=== PATIENT | female | born 1950 | race Two or more races ===

== ENCOUNTER → 2020-08-05 | Outpatient (REF) | payer OTHER, MEDICAID ==
[~2020-08-05] MED LIST: CELE20TA PO; FOLI1TAB11 PO; LIDO5DIS41 TD; MECL1TAB31 PO; MULT1TAB8 PO; NO HOME MEDS; PENI500T PO; SERAX PO; TYLE325T5 PO; VITAMIN B-1100 M4 PO
[2020-08-05 16:32] LABS: BASO % 0.5 % (0.0-1.0); EOS % 0.5 % (0.0-3.0); HEMATOCRIT 43.2 % (36.0-47.0); HEMOGLOBIN 13.9 g/dl (12.0-15.5); LYMPH # 1.4 10^3/uL (1.5-5.0); LYMPH % 23.5 % (24.0-44.0); MEAN CORPUSCULAR HEMOGLOBIN 30.5 pg (27.0-33.0); MEAN CORPUSCULAR HGB CONC 32.2 g/dl (32.0-36.5); MEAN CORPUSCULAR VOLUME 94.9 fl (80.0-96.0); MONO # 0.4 10^3/uL (0.0-0.8); MONO % 7.2 % (2.0-8.0); NEUTROPHILS # 4.1 10^3/uL (1.5-8.5); PLATELET COUNT, AUTOMATED 254 10^3/uL (150-450); RED BLOOD COUNT 4.55 10^6/uL (4.00-5.40)
[2020-08-05 17:01] LABS: ALBUMIN 3.9 GM/DL (3.2-5.2); ALT/SGPT 28 U/L (12-78); BILIRUBIN,TOTAL 0.3 MG/DL (0.2-1.0); BLOOD UREA NITROGEN 13 MG/DL (7-18); CALCIUM LEVEL 9.5 MG/DL (8.8-10.2); CARBON DIOXIDE LEVEL 28 MEQ/L (21-32); CHLORIDE LEVEL 105 MEQ/L (98-107); CREATININE FOR GFR 0.67 MG/DL (0.55-1.30); GLOMERULAR FILTRATION RATE > 60.0 (>45); GLUCOSE, FASTING 103 MG/DL (70-100); SODIUM LEVEL 139 MEQ/L (136-145); TOTAL PROTEIN 7.5 GM/DL (6.4-8.2)
== END ==
LOC: M SFHCCLAY 11:06
PROVIDERS: ATTEND Nurse Practitioner Family
DX: I26.99 Other pulmonary embolism without acute cor pulmonale (principal); J44.9 Chronic obstructive pulmonary disease, unspecified; R91.8 Other nonspecific abnormal finding of lung field

== ENCOUNTER → 2020-09-10 | Outpatient (CLI) | payer MEDICARE, MEDICAID | LOC: M PLARAD 12:22 | PROVIDERS: ATTEND Internal Medicine Pulmonary Disease | DX: R91.1 Solitary pulmonary nodule (principal) | CPT/HCPCS: 78815; A9552 ==

== ENCOUNTER → 2021-02-13 | Outpatient (CLI) | payer MEDICARE, MEDICAID ==
--- NOTE | 2021-02-13 15:31 | REP ---
INDICATION: SOLITARY PULMONARY NODULE COMPARISON: 07/02/2020 TECHNIQUE: Axial noncontrast images from the thoracic inlet to the upper abdomen with coronal and sagittal reformations. This CT examination was performed using the following dose reduction techniques: Automated exposure control, adjustment of mA and/or kv according to the patient's size, and use of iterative reconstruction technique. FINDINGS: The previously identified 10 mm spiculated nodule in the medial aspect of the right lower lobe has been replaced by small amount of scarring (series 201; image 53). The lung olmedo demonstrate advanced COPD/emphysematous changes with scattered scarring. No further acute consolidation, suspicious nodule or mass lesion. No effusion. No pneumothorax. Bronchiectasis noted. Nonspecific mediastinal lymph nodes measure up to 10 mm short axis diameter. Atherosclerotic changes to the thoracic aorta and coronary arteries remains stable. No cardiomegaly or pericardial effusion. Musculoskeletal structures demonstrate age-related degenerative changes. IMPRESSION: 1. The previously identified spiculated 10 mm nodule along the medial right lower lobe is no longer visible and should be correlated with the possibility of recent surgical intervention. 2. Lung olmedo demonstrate advanced emphysematous changes and scattered scarring without new acute process. <Electronically signed by De Azul > 02/13/21 0319
== END ==
LOC: M RAD 13:28
PROVIDERS: ATTEND Internal Medicine Pulmonary Disease
DX: R91.1 Solitary pulmonary nodule (principal)

== ENCOUNTER → 2021-05-26 | Outpatient (REF) | payer MEDICARE, MEDICAID ==
[2021-05-26 15:47] LABS: BASO % 0.7 % (0.0-1.0); EOS % 0.5 % (0.0-3.0); HEMATOCRIT 46.4 % (36.0-47.0); HEMOGLOBIN 15.4 g/dl (12.0-15.5); LYMPH # 1.7 10^3/uL (1.5-5.0); LYMPH % 28.3 % (24.0-44.0); MEAN CORPUSCULAR HEMOGLOBIN 31.4 pg (27.0-33.0); MEAN CORPUSCULAR HGB CONC 33.2 g/dl (32.0-36.5); MEAN CORPUSCULAR VOLUME 94.7 fl (80.0-96.0); MONO # 0.5 10^3/uL (0.0-0.8); MONO % 8.7 % (2.0-8.0); NEUTROPHILS # 3.7 10^3/uL (1.5-8.5); NEUTROPHILS % 61.3 % (36.0-66.0); PLATELET COUNT, AUTOMATED 256 10^3/uL (150-450)
[2021-05-26 16:23] LABS: ALBUMIN 4.2 GM/DL (3.2-5.2); ALT/SGPT 31 U/L (12-78); BILIRUBIN,TOTAL 0.6 MG/DL (0.2-1.0); BLOOD UREA NITROGEN 15 MG/DL (7-18); CALCIUM LEVEL 10.2 MG/DL (8.8-10.2); CARBON DIOXIDE LEVEL 32 MEQ/L (21-32); CHLORIDE LEVEL 102 MEQ/L (98-107); CREATININE FOR GFR 0.69 MG/DL (0.55-1.30); GLOMERULAR FILTRATION RATE > 60.0 (>45); GLUCOSE, FASTING 101 MG/DL (70-100); POTASSIUM SERUM 4.9 MEQ/L (3.5-5.1); SODIUM LEVEL 138 MEQ/L (136-145); TOTAL PROTEIN 7.8 GM/DL (6.4-8.2)
== END ==
LOC: M SFHCCLAY 13:26
PROVIDERS: ATTEND Nurse Practitioner Family
DX: I26.99 Other pulmonary embolism without acute cor pulmonale (principal); J44.9 Chronic obstructive pulmonary disease, unspecified; R91.8 Other nonspecific abnormal finding of lung field

== ENCOUNTER → 2022-05-28 | Outpatient (REF) | payer MEDICARE, MEDICAID ==
[2022-05-28 17:52] LABS: BASO % 0.7 % (0.0-1.0); EOS # 0.1 10^3/uL (0.0-0.5); EOS % 1.3 % (0.0-3.0); HEMATOCRIT 45.1 % (36.0-47.0); HEMOGLOBIN 14.5 g/dl (12.0-15.5); LYMPH # 1.5 10^3/uL (1.5-5.0); LYMPH % 24.2 % (24.0-44.0); MEAN CORPUSCULAR HEMOGLOBIN 31.3 pg (27.0-33.0); MEAN CORPUSCULAR HGB CONC 32.2 g/dl (32.0-36.5); MEAN CORPUSCULAR VOLUME 97.2 fl (80.0-96.0); MONO # 0.5 10^3/uL (0.0-0.8); NEUTROPHILS # 3.9 10^3/uL (1.5-8.5); NEUTROPHILS % 64.6 % (36.0-66.0); PLATELET COUNT, AUTOMATED 253 10^3/uL (150-450); RED BLOOD COUNT 4.64 10^6/uL (4.00-5.40)
[2022-05-28 18:13] LABS: THYROID STIMULATING HORMONE 2.062 uIU/ML (0.55-4.78)
[2022-05-28 18:14] LABS: ALBUMIN 4.2 G/DL (3.2-5.2); ALKALINE PHOSPHATASE 93 U/L (46-116); ALT/SGPT 16 U/L (7.0-40); AST/SGOT 21 U/L (<34); BILIRUBIN,TOTAL 0.4 MG/DL (0.3-1.2); BLOOD UREA NITROGEN 11 MG/DL (9-23); CALCIUM LEVEL 9.9 MG/DL (8.3-10.6); CARBON DIOXIDE LEVEL 31 MMOL/L (20-31); CHLORIDE LEVEL 103 MMOL/L (98-107); CHOLESTEROL LEVEL 229 MG/DL (<200); CHOLESTEROL RISK RATIO 2.01 (<5); CREATININE FOR GFR 0.58 MG/DL (0.55-1.30); FREE T4 1.31 NG/DL (0.89-1.76); GLOMERULAR FILTRATION RATE > 60.0 (>39); GLUCOSE, FASTING 84 MG/DL (74-106); HDL CHOLESTEROL 113.5 MG/DL (>40); LDL CHOLESTEROL 95.9 MG/DL (<100); NON-HDL-C 115.5 MG/DL; POTASSIUM SERUM 4.3 MMOL/L (3.5-5.1); SODIUM LEVEL 139 MMOL/L (136-145); TOTAL PROTEIN 7.2 G/DL (5.7-8.2); TRIGLYCERIDES LEVEL 98 MG/DL (<150)
== END ==
LOC: M SFHCCLAY 13:32
PROVIDERS: ATTEND Nurse Practitioner Family
DX: I26.99 Other pulmonary embolism without acute cor pulmonale (principal); J44.9 Chronic obstructive pulmonary disease, unspecified; R91.8 Other nonspecific abnormal finding of lung field; Z79.899 Other long term (current) drug therapy

== ENCOUNTER 2022-11-25 18:34 | Observation (INO) | payer MEDICARE, MEDICAID ==
[~2022-11-25] VITALS: Ht 157.5 cm; Wt 45.5 kg
[~2022-11-25 18:34] MED LIST changes: +MECL-209 PO; -MECL1TAB31 PO
[2022-11-25 19:55] LABS: BASO % 0.6 % (0.0-1.0); EOS # 0.1 10^3/uL (0.0-0.5); EOS % 0.9 % (0.0-3.0); HEMOGLOBIN 14.8 g/dl (12.0-15.5); LYMPH # 1.3 10^3/uL (1.5-5.0); MEAN CORPUSCULAR HEMOGLOBIN 31.6 pg (27.0-33.0); MEAN CORPUSCULAR HGB CONC 33.6 g/dl (32.0-36.5); MEAN CORPUSCULAR VOLUME 93.8 fl (80.0-96.0); MONO # 0.5 10^3/uL (0.0-0.8); NEUTROPHILS # 4.5 10^3/uL (1.5-8.5); NEUTROPHILS % 70.2 % (36.0-66.0); PLATELET COUNT, AUTOMATED 227 10^3/uL (150-450); RED BLOOD COUNT 4.69 10^6/uL (4.00-5.40); WHITE BLOOD COUNT 6.4 10^3/uL (4.0-10.0)
[2022-11-25 20:07] LABS: INR 1.26; PROTHROMBIN TIME 15.5 SECONDS (12.5-14.5)
[2022-11-25 20:08] LABS: PARTIAL THROMBOPLASTIN TIME 33.8 SECONDS (24.8-34.2)
[2022-11-25 20:13] LABS: LIPASE 54 U/L (12-53)
[2022-11-25 20:15] LABS: ALBUMIN 3.9 G/DL (3.2-5.2); ALKALINE PHOSPHATASE 96 U/L (46-116); ALT/SGPT 23 U/L (7.0-40); AST/SGOT 26 U/L (<34); BILIRUBIN,DIRECT < 0.1 MG/DL (<0.4); BILIRUBIN,TOTAL 0.3 MG/DL (0.3-1.2); BLOOD UREA NITROGEN 8 MG/DL (9-23); CALCIUM LEVEL 9.3 MG/DL (8.3-10.6); CARBON DIOXIDE LEVEL 29 MMOL/L (20-31); CHLORIDE LEVEL 101 MMOL/L (98-107); CREATININE FOR GFR 0.46 MG/DL (0.55-1.30); GLOMERULAR FILTRATION RATE > 60.0 (>39); GLUCOSE, FASTING 108 MG/DL (74-106); POTASSIUM SERUM 4.4 MMOL/L (3.5-5.1); SODIUM LEVEL 134 MMOL/L (136-145); TOTAL PROTEIN 7.3 G/DL (5.7-8.2)
[2022-11-25 20:19] LABS: CPK CREATINE PHOSPHOKINASE 151 U/L (34-145); MB/CK RELATIVE INDEX 1.98 (< OR =4)
[2022-11-25] MEDS ORDERED: ISOVUE-370 76% 100ML VIAL As Ordered ONE (21:19)
[2022-11-25 22:04] LABS: CK-MB VALUE MASS 2.1 NG/ML (<3.6)
[2022-11-25 22:08] LABS: MB/CK RELATIVE INDEX 1.52 (< OR =4)
[2022-11-25 23:06] LABS: RSV AMPLIFICATION NEGATIVE (NEGATIVE)
[2022-11-26] MEDS ORDERED: MOM 30ML SUSPENSION UDC PO PRN
[2022-11-26] MEDS ORDERED: hydrALAZINE 20MG/ML 1ML VIAL IV PRN (00:20)
[2022-11-26] MEDS ORDERED: LORazepam 2 MG TAB PO PRN (00:20)
[2022-11-26] MEDS ORDERED: ALBU8.5H INH (00:33)
[2022-11-26] MEDS ORDERED: HAIR1CHW PO (00:33)
[2022-11-26] MEDS ORDERED: XARE20TA PO (00:33)
[2022-11-26] MEDS ORDERED: MULTCHW12 PO (00:33)
[2022-11-26] MEDS ORDERED: HOME MED LIST COMPLETE! XX SCH (00:35)
[2022-11-26] MEDS ORDERED: ALBUTEROL 90 MCG/ACT 8GM HFA INHALER INH PRN (00:40)
[2022-11-26] MEDS: ATORVASTATIN 20 MG TAB PO SCH ×2 (01:36→21:12)
[2022-11-26] MEDS: THIAMINE 100 MG TAB PO SCH ×3 (01:36→21:12)
[2022-11-26 06:32] LABS: HEMATOCRIT 41.3 % (36.0-47.0); MEAN CORPUSCULAR HEMOGLOBIN 31.5 pg (27.0-33.0); MEAN CORPUSCULAR HGB CONC 33.9 g/dl (32.0-36.5); MEAN CORPUSCULAR VOLUME 92.8 fl (80.0-96.0); PLATELET COUNT, AUTOMATED 214 10^3/uL (150-450); RED BLOOD COUNT 4.45 10^6/uL (4.00-5.40); WHITE BLOOD COUNT 5.9 10^3/uL (4.0-10.0)
[2022-11-26 07:30] LABS: ALBUMIN 3.5 G/DL (3.2-5.2); ALKALINE PHOSPHATASE 86 U/L (46-116); ALT/SGPT 18 U/L (7.0-40); AST/SGOT 23 U/L (<34); BILIRUBIN,TOTAL 0.5 MG/DL (0.3-1.2); BLOOD UREA NITROGEN 7 MG/DL (9-23); CALCIUM LEVEL 9.5 MG/DL (8.3-10.6); CARBON DIOXIDE LEVEL 33 MMOL/L (20-31); CHLORIDE LEVEL 106 MMOL/L (98-107); CREATININE FOR GFR 0.56 MG/DL (0.55-1.30); GLOMERULAR FILTRATION RATE > 60.0 (>39); GLUCOSE, FASTING 93 MG/DL (74-106); SODIUM LEVEL 141 MMOL/L (136-145); TOTAL PROTEIN 6.5 G/DL (5.7-8.2)
[2022-11-26 10:04] LABS: CHOLESTEROL LEVEL 207 MG/DL (<200); CHOLESTEROL RISK RATIO 1.86 (<5); HDL CHOLESTEROL 110.9 MG/DL (>40); LDL CHOLESTEROL 78.1 MG/DL (<100); NON-HDL-C 96.1 MG/DL; TRIGLYCERIDES LEVEL 90 MG/DL (<150)
[2022-11-26] MEDS: ASPIRIN 81MG CHEW TABLET PO SCH (10:24)
[2022-11-26] MEDS: FOLIC ACID 1MG TAB PO SCH (10:24)
[2022-11-26] MEDS: MULTIVITAMINS/MINERALS THERAP 1 TAB PO SCH (10:24)
[2022-11-26] MEDS: DOCUSATE SODIUM 100MG CAPSULE PO SCH ×2 (10:25→21:12)
[2022-11-26 10:34] LABS: HEMOGLOBIN A1c 5.1 % (4.0-6.0)
[2022-11-26] MEDS: RIVAROXABAN 20MG TAB (XARELTO) PO SCH (17:54)
[2022-11-26 18:19] LABS: FOLATE > 24.00 NG/ML (>5.4); VITAMIN B12 LEVEL 433 PG/ML (211-911)
[2022-11-27] MEDS: MULTIVITAMINS/MINERALS THERAP 1 TAB PO SCH (08:25)
[2022-11-27] MEDS: THIAMINE 100 MG TAB PO SCH ×2 (08:25→20:55)
[2022-11-27] MEDS: DOCUSATE SODIUM 100MG CAPSULE PO SCH ×2 (08:25→20:55)
[2022-11-27] MEDS: ASPIRIN 81MG CHEW TABLET PO SCH (08:25)
[2022-11-27] MEDS: FOLIC ACID 1MG TAB PO SCH (08:25)
[2022-11-27 09:16] LABS: BASO % 0.4 % (0.0-1.0); EOS # 0.1 10^3/uL (0.0-0.5); EOS % 0.9 % (0.0-3.0); HEMATOCRIT 42.6 % (36.0-47.0); HEMOGLOBIN 14.4 g/dl (12.0-15.5); LYMPH % 26.4 % (24.0-44.0); MEAN CORPUSCULAR HEMOGLOBIN 31.5 pg (27.0-33.0); MEAN CORPUSCULAR HGB CONC 33.8 g/dl (32.0-36.5); MEAN CORPUSCULAR VOLUME 93.2 fl (80.0-96.0); MONO # 0.7 10^3/uL (0.0-0.8); MONO % 8.7 % (2.0-8.0); NEUTROPHILS # 4.7 10^3/uL (1.5-8.5); NEUTROPHILS % 63.3 % (36.0-66.0); PLATELET COUNT, AUTOMATED 219 10^3/uL (150-450); RED BLOOD COUNT 4.57 10^6/uL (4.00-5.40); WHITE BLOOD COUNT 7.5 10^3/uL (4.0-10.0)
[2022-11-27 09:40] LABS: BLOOD UREA NITROGEN 14 MG/DL (9-23); CALCIUM LEVEL 9.4 MG/DL (8.3-10.6); CARBON DIOXIDE LEVEL 31 MMOL/L (20-31); CHLORIDE LEVEL 107 MMOL/L (98-107); CREATININE FOR GFR 0.59 MG/DL (0.55-1.30); GLOMERULAR FILTRATION RATE > 60.0 (>39); GLUCOSE, FASTING 92 MG/DL (74-106); SODIUM LEVEL 142 MMOL/L (136-145)
[2022-11-27] MEDS: IPRATROPIUM 0.5MG/ALBUTEROL 2.5MG INH SOL UD 3ML (DUONEB) NEB SCH ×3 (10:45→19:53)
[2022-11-27] MEDS: predniSONE 20 MG TAB PO SCH (11:03)
[2022-11-27] MEDS: SYMBICORT 80/4.5MCG INHALER 6GM INH SCH ×2 (11:31→19:54)
[2022-11-27] MEDS ORDERED: LORazepam 2 MG/ML 1ML VIAL IV STA (14:14)
[2022-11-27 17:00] VITALS: BP 111/71; TEMP 97.7; O2SAT 95
[2022-11-27] MEDS: RIVAROXABAN 20MG TAB (XARELTO) PO SCH (18:29)
[2022-11-27 20:24] VITALS: BP 104/57; TEMP 98.1; O2SAT 90
[2022-11-27] MEDS: ATORVASTATIN 20 MG TAB PO SCH (20:55)
[2022-11-28] VITALS (9 sets, daily range): BP systolic 102–110; BP diastolic 48–68; TEMP 97.3–97.7; O2SAT 82–94
[2022-11-28] MEDS: IPRATROPIUM 0.5MG/ALBUTEROL 2.5MG INH SOL UD 3ML (DUONEB) NEB SCH ×4 (01:30→20:00)
[2022-11-28] MEDS: SYMBICORT 80/4.5MCG INHALER 6GM INH SCH ×2 (07:10→20:00)
[2022-11-28] MEDS: THIAMINE 100 MG TAB PO SCH ×2 (08:33→20:23)
[2022-11-28] MEDS: FOLIC ACID 1MG TAB PO SCH (08:33)
[2022-11-28] MEDS: predniSONE 20 MG TAB PO SCH (08:33)
[2022-11-28] MEDS: MULTIVITAMINS/MINERALS THERAP 1 TAB PO SCH (08:33)
[2022-11-28] MEDS: ASPIRIN 81MG CHEW TABLET PO SCH (08:34)
[2022-11-28] MEDS: DOCUSATE SODIUM 100MG CAPSULE PO SCH ×3 (08:40→20:26)
[2022-11-28] MEDS: PANTOPRAZOLE 40MG TAB (PROTONIX) PO SCH (15:36)
[2022-11-28] MEDS: RIVAROXABAN 20MG TAB (XARELTO) PO SCH (17:41)
[2022-11-28] MEDS: ATORVASTATIN 20 MG TAB PO SCH (20:23)
[2022-11-29] MEDS: IPRATROPIUM 0.5MG/ALBUTEROL 2.5MG INH SOL UD 3ML (DUONEB) NEB SCH ×4 (02:00→19:21)
[2022-11-29 04:48] VITALS: BP 118/63; TEMP 97.7; O2SAT 100
[2022-11-29 06:56] VITALS: BP 118/63
[2022-11-29] MEDS: SYMBICORT 80/4.5MCG INHALER 6GM INH SCH ×2 (07:35→19:20)
[2022-11-29] MEDS: DOCUSATE SODIUM 100MG CAPSULE PO SCH ×3 (09:00→20:31)
[2022-11-29] MEDS: predniSONE 20 MG TAB PO SCH (09:07)
[2022-11-29] MEDS: FOLIC ACID 1MG TAB PO SCH (09:07)
[2022-11-29] MEDS: MULTIVITAMINS/MINERALS THERAP 1 TAB PO SCH (09:07)
[2022-11-29] MEDS: PANTOPRAZOLE 40MG TAB (PROTONIX) PO SCH (09:07)
[2022-11-29] MEDS: THIAMINE 100 MG TAB PO SCH (09:07)
[2022-11-29] MEDS: ASPIRIN 81MG CHEW TABLET PO SCH (09:07)
[2022-11-29] MEDS: RIVAROXABAN 20MG TAB (XARELTO) PO SCH (17:50)
[2022-11-29] MEDS: ATORVASTATIN 20 MG TAB PO SCH (20:40)
[2022-11-30] MEDS: IPRATROPIUM 0.5MG/ALBUTEROL 2.5MG INH SOL UD 3ML (DUONEB) NEB SCH ×4 (01:23→19:23)
[2022-11-30 05:31] VITALS: BP 119/63; TEMP 97.7; O2SAT 99
[2022-11-30] MEDS: SYMBICORT 80/4.5MCG INHALER 6GM INH SCH ×2 (07:19→19:23)
[2022-11-30] MEDS: DOCUSATE SODIUM 100MG CAPSULE PO SCH ×4 (09:00→20:55)
[2022-11-30] MEDS: FOLIC ACID 1MG TAB PO SCH (10:16)
[2022-11-30] MEDS: MULTIVITAMINS/MINERALS THERAP 1 TAB PO SCH (10:16)
[2022-11-30] MEDS: ASPIRIN 81MG CHEW TABLET PO SCH (10:16)
[2022-11-30] MEDS: PANTOPRAZOLE 40MG TAB (PROTONIX) PO SCH (10:16)
[2022-11-30] MEDS: predniSONE 20 MG TAB PO SCH (10:16)
[2022-11-30 10:19] VITALS: BP 112/58
[2022-11-30] MEDS: RIVAROXABAN 20MG TAB (XARELTO) PO SCH (18:01)
[2022-11-30 20:58] VITALS: O2SAT 87
[2022-11-30 21:00] VITALS: O2SAT 88
[2022-11-30] MEDS: ATORVASTATIN 20 MG TAB PO SCH (21:04)
[2022-12-01] VITALS (13 sets, daily range): BP systolic 146; BP diastolic 76; TEMP 97.7; O2SAT 84–94
[2022-12-01] MEDS: IPRATROPIUM 0.5MG/ALBUTEROL 2.5MG INH SOL UD 3ML (DUONEB) NEB SCH ×2 (02:00→08:00)
[2022-12-01] MEDS: SYMBICORT 80/4.5MCG INHALER 6GM INH SCH ×2 (08:00→19:30)
[2022-12-01] MEDS: DOCUSATE SODIUM 100MG CAPSULE PO SCH ×2 (09:00→20:20)
[2022-12-01] MEDS: MULTIVITAMINS/MINERALS THERAP 1 TAB PO SCH (09:28)
[2022-12-01] MEDS: ASPIRIN 81MG CHEW TABLET PO SCH (09:28)
[2022-12-01] MEDS: PANTOPRAZOLE 40MG TAB (PROTONIX) PO SCH (09:28)
[2022-12-01] MEDS: predniSONE 20 MG TAB PO SCH (09:28)
[2022-12-01] MEDS: FOLIC ACID 1MG TAB PO SCH (09:28)
[2022-12-01] MEDS: RIVAROXABAN 20MG TAB (XARELTO) PO SCH (18:13)
[2022-12-01] MEDS: ATORVASTATIN 20 MG TAB PO SCH (20:20)
[2022-12-02 04:40] VITALS: BP 154/94; TEMP 97.7; O2SAT 94
[2022-12-02] MEDS: SYMBICORT 80/4.5MCG INHALER 6GM INH SCH ×2 (07:25→20:06)
[2022-12-02] MEDS: DOCUSATE SODIUM 100MG CAPSULE PO SCH ×3 (09:00→19:45)
[2022-12-02] MEDS: ASPIRIN 81MG CHEW TABLET PO SCH (09:17)
[2022-12-02] MEDS: FOLIC ACID 1MG TAB PO SCH (09:18)
[2022-12-02] MEDS: MULTIVITAMINS/MINERALS THERAP 1 TAB PO SCH (09:18)
[2022-12-02] MEDS: predniSONE 20 MG TAB PO SCH (09:18)
[2022-12-02] MEDS: PANTOPRAZOLE 40MG TAB (PROTONIX) PO SCH (09:18)
[2022-12-02] MEDS: RIVAROXABAN 20MG TAB (XARELTO) PO SCH (17:25)
[2022-12-02] MEDS: ATORVASTATIN 20 MG TAB PO SCH (19:57)
[2022-12-02 22:52] VITALS: O2SAT 93
[2022-12-03 04:30] VITALS: BP 139/80; TEMP 97.3; O2SAT 93
[2022-12-03] MEDS: SYMBICORT 80/4.5MCG INHALER 6GM INH SCH ×2 (07:20→19:08)
[2022-12-03 08:00] VITALS: BP_SYST 136; BP_SYST 138; BP_DIAS 72; TEMP 97.9; O2SAT 96
[2022-12-03] MEDS: FOLIC ACID 1MG TAB PO SCH (08:33)
[2022-12-03] MEDS: PANTOPRAZOLE 40MG TAB (PROTONIX) PO SCH (08:34)
[2022-12-03] MEDS: DOCUSATE SODIUM 100MG CAPSULE PO SCH ×2 (08:34→09:00)
[2022-12-03] MEDS: predniSONE 20 MG TAB PO SCH (08:34)
[2022-12-03] MEDS: ASPIRIN 81MG CHEW TABLET PO SCH (08:34)
[2022-12-03] MEDS: MULTIVITAMINS/MINERALS THERAP 1 TAB PO SCH (08:34)
[2022-12-03] MEDS: RIVAROXABAN 20MG TAB (XARELTO) PO SCH (17:59)
[2022-12-03] MEDS: ATORVASTATIN 20 MG TAB PO SCH (20:22)
[2022-12-04 04:10] VITALS: BP 139/80; TEMP 97.5; O2SAT 96
[2022-12-04] MEDS: SYMBICORT 80/4.5MCG INHALER 6GM INH SCH (07:47)
[2022-12-04] MEDS: DOCUSATE SODIUM 100MG CAPSULE PO SCH (08:44)
[2022-12-04] MEDS: ASPIRIN 81MG CHEW TABLET PO SCH (08:44)
[2022-12-04 08:45] VITALS: BP 127/64
[2022-12-04] MEDS: PANTOPRAZOLE 40MG TAB (PROTONIX) PO SCH (08:45)
[2022-12-04] MEDS: predniSONE 20 MG TAB PO SCH (08:45)
[2022-12-04] MEDS: FOLIC ACID 1MG TAB PO SCH (08:45)
[2022-12-04] MEDS: MULTIVITAMINS/MINERALS THERAP 1 TAB PO SCH (08:45)
[2022-12-04] MEDS ORDERED: ASPI81CH8 PO (08:57)
[2022-12-04] MEDS ORDERED: FOLI1TAB11 PO (08:57)
[2022-12-04] MEDS ORDERED: SYMB80INH INH (08:57)
[2022-12-04] MEDS ORDERED: LISI10TA22 PO (08:57)
[2022-12-04] MEDS ORDERED: ATOR80TA59 PO (08:57)
[2022-12-04] MEDS ORDERED: IPRA0.00 INH (09:00)
[2022-12-04] MEDS ORDERED: PRED20TA PO (09:00)
[2022-12-06 11:07] LABS: VITAMIN B1 LEVEL WHOLE BLOOD 145.2 nmol/L (66.5-200.0)
== END 2022-12-04 10:46 | disposition home or self-care (01) ==
LOC: M ED 18:34 → EDBD 18:34 → M ED INP 23:56 → INTOOBSV 23:56 → ENRESERV 11-27 15:15 → M MSPAV 11-27 16:54
PROVIDERS: ADMIT Family Medicine; ATTEND Student in an Organized Health Care Education/Training Program
DX: G45.9 Transient cerebral ischemic attack, unspecified (principal); I16.0 Hypertensive urgency; R42 Dizziness and giddiness; J96.11 Chronic respiratory failure with hypoxia; F10.20 Alcohol dependence, uncomplicated; F17.218 Nicotine dependence, cigarettes, with other nicotine-induced disorders; Z86.711 Personal history of pulmonary embolism; Z79.01 Long term (current) use of anticoagulants; Z79.82 Long term (current) use of aspirin; Z79.52 Long term (current) use of systemic steroids; Z88.0 Allergy status to penicillin
CPT/HCPCS: 36415; 70450; 70496; 70498; 70544; 70551; 71045; 80048; 80053; 80061; 80076; 81001; 82525; 82550; 82553; 82607; 82746; 83036; 83605; 83690; 84425; 84484; 85025; 85027; 85610; 85730; 87040; 87631; 93005; 93041; 93306; 94640; 96374; 97112; 97116; 97161; 97165; 97530; 97535; 99285; G0378; J2060; J7512; Q9967